=== PATIENT | male | born 1995 | race Caucasian/White ===

== ENCOUNTER 2022-05-19 22:43 | Emergency (ER) | payer SELFPAY ==
--- NOTE | 2022-05-19 22:49 | NUR ---
Pt checked in and left a few minutes later without being triaged.
== END 2022-05-19 22:49 | disposition left against medical advice (07) ==
LOC: ER 22:43
DX: Z53.21 Procedure and treatment not carried out due to patient leaving prior to being seen by health care provider (principal)